=== PATIENT | male | born 1955 | race Caucasian/White ===

== ENCOUNTER 2021-02-18 12:13 | Emergency (ER) | payer BC, SELFPAY ==
[2021-02-18 12:42] VITALS: BP 143/86; PULSE 101; RESP 18; TEMP 36.8; O2SAT 96; BMI 30.8
[2021-02-18 12:48] LABS: UTC Strep Screen (Rapid) Positive (Negative)
[2021-02-18 12:53] VITALS: BP 143/86; PULSE 101; RESP 16; TEMP 36.8
--- NOTE | 2021-02-18 13:11 | HMH.EDUTC ---
[facility] Disposition Clinical Impression: Strep throat Upper respiratory infection Qualifiers: URI type: unspecified URI Qualified Code(s): J06.9 - Acute upper respiratory infection, unspecified Disposition: Home, Self-Care Condition on Discharge: Good Instructions: DI for Strep Throat Additional Instructions: Drink plenty of fluids. Take tylenol or ibuprofen for pain or fever. Take the medications as directed. Follow up with your regular doctor. GO TO THE ER FOR ANY WORSENING SYMPTOMS Prescriptions: Amoxicillin/Potassium Clav [Augmentin 875-125 Tablet] 1 tab PO Q12H 10 Days #20 tab Transmission Status: Received by [facility] # predniSONE [Deltasone 10mg tablet] 10 mg PO BID 3 Days #6 tab Transmission Status: Received by [facility] # Benzonatate [Tessalon Perle 100mg Cap] 100 mg PO TIDP PRN #30 cap PRN Reason: Cough Transmission Status: Received by [facility] # Referrals: Raoul Gutiérrez MD [Primary Care Provider] - Time of Disposition: 13:12 Medical Decision Making - Medical Records Medical records reviewed: No: I reviewed the patient's medical records. - Michael Inquiry Pt receiving controlled substance: No Vital Signs: 02/18/21 12:42 02/18/21 12:53 Temperature 98.2 F 98.2 F Temperature Source Oral Pulse Rate 101 H Pulse Rate [Right] 101 H Respiratory Rate 18 16 Blood Pressure 143/86 H Blood Pressure [Right Arm] 143/86 H Blood Pressure Mean [Right Arm] 105 02 Sat by Pulse Oximetry 96 - Lab Data Lab results reviewed: Yes: I reviewed the patient's lab results. Lab Results 02/18/21 12:45: Strep Scn Rapid Clinic Positive A [facility] HPI - General Stated complaint: sore throat Time Seen by Provider: 02/18/21 13:11 Mode of Arrival: Ambulatory Source of Information: Patient Limitations: No Limitations Description of Symptoms (Recalled from Triage Doc. by RN): pt c/o sore throat and drainage. pts is strep positive. HEENT Symptoms (Recalled from RN notes): Yes (sore throat and nasal drainage.) Resp Symptoms (Recalled from RN notes): No Skin Symptoms (Recalled from RN notes): No MS Symptoms (Recalled from RN notes): No Functional Status (Recalled from RN notes): na - History of Present Illness Provider Complaint: He has had a sore throat for the past 2 days. His was diagnosed with strep throat yesterday. - Related Data Previous Rx's Medication Instructions Recorded Amoxicillin/Potassium Clav 1 tab PO Q12H 10 Days #20 tab 02/18/21 [Augmentin 875-125 Tablet] Benzonatate [Tessalon Perle 100mg 100 mg PO TIDP PRN #30 cap 02/18/21 Cap] predniSONE [Deltasone 10mg tablet] 10 mg PO BID 3 Days #6 tab 02/18/21 Allergies Allergy/AdvReac Type Severity Reaction Status Date / Time No Known Allergies Allergy Verified 02/18/21 12:48 - Worker's Comp Is this a Worker's Comp case?: No [facility] History - Hepatitis A Screen Drug use history?: No High risk sexual behaviors?: No History of sexually transmitted infection?: No Currently employed?: No Childcare worker?: No Do you have indoor plumbing?: Yes Do you have electricity?: Yes Attestation statement:: This patient has been screened for Hepatitis A risk factors. I have reviewed the patient's past medical history: Yes ROS Obtained: Yes All systems reviewed & no additional complaints - Constitutional Constitutional: Reports chills, Denies fever(s), Reports poor appetite, Reports malaise - Eyes Eyes: Denies eye discharge - ENT Ears, Nose, Mouth, and Throat: Reports as per HPI - Cardiovascular Cardiovascular: Denies chest pain - Respiratory Respiratory: Reports chest congestion, Reports cough, Denies dyspnea, Denies stridor, Denies wheezing - Gastrointestinal Gastrointestingal: Reports: nausea. Denies: abdominal pain, diarrhea, vomiting Physical Exam - General General appearance: alert, in no apparent distress - Head Head exam: atraum
== END 2021-02-18 13:23 | disposition home or self-care (01) ==
PROVIDERS: Emergency Provider Nurse Practitioner Family; PCP Family Medicine
DX: J02.0 Streptococcal pharyngitis (principal); J06.9 Acute upper respiratory infection, unspecified
CPT/HCPCS: 87880; 99202; G0463

== ENCOUNTER 2023-02-05 07:24 | Emergency (ER) | payer BC, SELFPAY ==
[2023-02-05] VITALS (8 sets, daily range): BP systolic 144–178; BP diastolic 87–105; PULSE 70–95; RESP 16; TEMP 36.7; O2SAT 95–96; BMI 28.3
--- NOTE | 2023-02-05 08:09 | PC.NURSE ---
TIFFANY BOWEN at
--- NOTE | 2023-02-05 08:57 | HMH.EDGENADL ---
Discharge Plan Disposition Patient Disposition: Home, Self-Care Condition: Good Chief Complaint: Epistaxis Prescriptions Prescriptions: No Action prednisone 10 MG tablet 10 mg PO BID 3 Days Qty: 6 0RF benzonatate 100 MG capsule 100 mg PO TIDP PRN (Reason: Cough) Qty: 30 0RF amoxicillin-pot clavulanate 1 EACH tablet 1 tab PO Q12H 10 Days Qty: 20 0RF Referrals Follow up/Referrals: Rakan Sam MD [Primary Care Provider] - See instructions Clinical Impressions Clinical Impression: Epistaxis Instructions Patient Instructions: DI for Nosebleed Print Language Print Language: Senegalese Discharge ED Provider: Aryan Mccann General Adult HPI General Chief complaint: Epistaxis Stated complaint: Frequent nose bleeds Time Seen by Provider: 02/05/23 09:27 Mode of Arrival: Ambulatory Source of Information: Patient Limitations: No Limitations Description of Symptoms (Recalled from ER Triage Doc. by RN): 67 yo M presents to ED for nosebleeds. pt reports friday and friday morning his nose only trickled blood. last niht and this am pt reports that he has been swallowing blood. pt does not take blood thinners. History of Present Illness HPI narrative: patient presents to the emergency department with epistaxis from his left nostril. The patient states that he has had a few of these over the last several days but describes tonight being the worst. He states that he has been using a nasal spray for allergy type of symptoms. Denies any nasal trauma. Denies being on a blood thinner. Denies any previous history of significant nosebleeds. Related Data Previous Rx's Medication Instructions Recorded amoxicillin 875 mg-potassium 1 tab PO Q12H 10 days #20 tabs 02/18/21 clavulanate 125 mg tablet benzonatate 100 mg capsule 100 mg PO TIDP PRN Cough #30 caps 02/18/21 prednisone 10 mg tablet 10 mg PO BID 3 days #6 tabs 02/18/21 Allergies Allergy/AdvReac Type Severity Reaction Status Date / Time No Known Allergies Allergy Verified 02/18/21 12:48 [facility] Disclaimer: The information contained in this section may have been updated after the patient was seen, as this information can be updated by other users. Social History Smoking Status: Never smoker alcohol intake: never current occupational status: retired Travel in the last 8 weeks: None ROS Obtained: Yes All systems reviewed & no additional complaints except as documented ENT Ears, Nose, Mouth, and Throat: Reports epistaxis Physical Exam General General appearance: alert and in no apparent distress Head Head exam: atraumatic and normocephalic Eye Eye exam: Present normal appearance, PERRL and EOMI ENT ENT exam: Present other ( Small amount of dried blood within the left nostril. Appears that there was a previously bleeding Patient presents to the emergency department with a 2-day history of sore throat, nasal septum.) Respiratory Respiratory exam: Present normal lung sounds bilaterally Cardiovascular Cardiovascular exam: Present regular rate, normal rhythm and normal heart sounds Abdominal Exam Abdominal exam: Present soft and normal bowel sounds Extremities Exam Extremities exam: Present normal inspection and full ROM Neurological Exam Neurological exam: Present alert and oriented X3 Psychiatric Psychiatric exam: Present normal affect and normal mood Medical Decision Making Medical Records Medical records reviewed: Yes I reviewed the patient's medical records. Michael Inquiry Pt receiving controlled substance: No Vital Signs: 02/05/23 07:25 02/05/23 07:31 02/05/23 07:43 Temperature 98.1 F Temperature Source Oral Pulse Rate 85 94 H Pulse Rate [Left] 86 Respiratory Rate 16 Blood Pressure 178/105 H 160/91 H Blood Pressure [Right Arm] 178/105 H Blood Pressure Mean 130 122 Blood Pressure Mean [Right Arm] 129 02 Sat by Pulse Oximetry 96 96 96
== END 2023-02-05 09:35 | disposition home or self-care (01) ==
PROVIDERS: Emergency Provider Emergency Medicine; PCP Family Medicine
DX: R04.0 Epistaxis (principal)
CPT/HCPCS: 99283; 99284

== ENCOUNTER 2024-01-16 14:53 | Outpatient (CLI) | payer OTHER, SELFPAY ==
--- NOTE | 2024-01-16 | CA_ITS ---
FINAL REPORT CLINICAL HISTORY: blurred vision, htn FINDINGS: RIGHT CAROTID: CCA PSV -84 cm/sec ICA PSV -98 cm/sec ICA/CCA PSV ratio -1.27 . Comments: Minimal plaque disease is noted. LEFTCAROTID: CCA PSV - 87. cm/sec ICA PSV -90. cm/sec ICA/CCA PSV ratio - 1.43 . Comments: Minimal plaque disease is noted. Antegrade flow is seen within the vertebral arteries. IMPRESSION: Carotid stenosis classified less than 50% Reviewed, Interpreted and Dictated by Reji Acosta MD Transcribed by Samia Ramsay Authenticated and [facility]
== END 2024-01-16 23:59 | disposition home or self-care (01) ==
PROVIDERS: PCP Family Medicine; Visit Provider Family Medicine
DX: R55 Syncope and collapse (principal); G45.8 Other transient cerebral ischemic attacks and related syndromes
CPT/HCPCS: 93880

== ENCOUNTER 2024-02-24 06:57 | Day surgery (SDC) | payer OTHER, SELFPAY ==
[2024-02-24] MEDS: CYCLOPENTOLATE 2% OPHTH SOLN 2ML BOTTLE OP ×3 (07:56→07:58)
[2024-02-24] MEDS: PHENYLEPHRINE 2.5% OPHTH SOLN 2ML OP ×3 (07:57→07:59)
[2024-02-24] MEDS: TETRACAINE 0.5% OPTH SOL 15ML OP ×3 (07:57→07:59)
[2024-02-24 08:05] VITALS: BP 172/98; PULSE 84; RESP 18; TEMP 36.6; O2SAT 96; BMI 28.3
[2024-02-24 08:13] VITALS: BP 172/89; PULSE 84; RESP 18; TEMP 36.6; O2SAT 96
[2024-02-24 08:55] VITALS: BP 163/95; PULSE 77; RESP 18; TEMP 36.6; O2SAT 98
[2024-02-24] MEDS: MIDAZOLAM 2MG/2ML VIAL 1 MG IV (08:55)
[2024-02-24 09:00] VITALS: BP 160/85; PULSE 83; RESP 18; TEMP 36.6; O2SAT 95
[2024-02-24] MEDS: LIDOCAINE 1% PF 2ML AMPULE 2 ML IJ (09:03)
[2024-02-24] MEDS: TOBRAMYCIN/DEX OPTH SUSP 2.5ML OP (09:03)
[2024-02-24] MEDS: TIMOLOL 0.5% OPTH SOLN 5ML OP (09:03)
[2024-02-24 09:05] VITALS: BP 158/83; PULSE 82; RESP 18; TEMP 36.6; O2SAT 96
[2024-02-24 09:20] VITALS: BP 150/87; PULSE 81; RESP 16; TEMP 36.8; O2SAT 97
--- NOTE | 2024-02-24 09:24 | ECG_ITS ---
APPROVED REPORT Exam: Resting ECG HR:72 bpm ECG Measurements Heart Rate 72 AXES IL 152 P 24 QRSd 178 QRS -9 QT 414 T 124 QTc 439 Conclusion SINUS RHYTHM LEFT BUNDLE BRANCH BLOCK [120+ ms QRS DURATION, 80+ ms Q/S IN V1/V2, 85+ ms R IN I/aVL/V5/V6] ABNORMAL ECG UNCONFIRMED REPORT Electronically signed by : Raoul Gallo MD 02/25/2024 15:03:43
--- NOTE | 2024-02-24 09:25 | SUR.OPER ---
855- patient into room with circulating nurse Jose URBANO. When initially hooking patient up to the cardiac mkonitor for cataract procedure, it was noticeable that his QRS was wide. Dr Andersen notified, stated to continue to watch and we will evaluate at the end of procedure. 914- procedure ended, Ronnie Escalante EMBEDDED SOFTWARE ENGINEER in room to evaluate ECG rhythm on monitor. Verbal orders for EKG. Verbal orders repeated and placed into computer. Respiratory called by Morgan Chao RN. Patient taken back to post-op. VSS stable throughout cataract procedure with noticeable Hypertension. see sedation vital signs for vitals during procedure. Post-op nurse Corwin Berman RN received report from this nurse. Notified of order for EKG orders.
--- NOTE | 2024-02-24 09:44 | SUR.PHASEII ---
0920 pt to post op Cynthia Julian RN to give report to Francesca Berman. EKG appeared abnormal in procedure room. EKG ordered. VS stable. no complaints from patient. EKG obtained with left bundle branch block. Cynthia Mclaughlin CRNA reviewed. Cardiology appointment made for 03/09/24 1030 with Chalo Shine. Patient instructed to go to ER if patient experiences chest pain, fainting, or any other symptoms.
--- NOTE | 2024-02-24 13:00 | P.PCN_ITS ---
[facility] Procedure Note Date: 02/24/24 Time: 13:00 Procedure Note:: Preoperative Diagnosis: Cataract combined NS Cortical Complex [Left] Eye Postop diagnosis: same Operation: Microscopic phacoemulsification with intraocular lens implant [Left] Eye Specimen: None Blood Loss: None The patient was examined in the office with a complaint of poor vision in the [left] eye. The patient reports that this interferes with ADLs such as reading, watching TV and/or driving or the vision is like looking through a foggy haze and is very troubling. The patient was examined and found to have a visually significant cataract with best corrected vision of [20/400] by refraction and/or glare testing. Treatment options, risks and benefits were explained and the patient elected to have cataract surgery in an attempt to improve their vision. The patient had the eye anesthetized with topical tetracaine, the eye ways prepped and draped in the usual fashion for cataract surgery. A paracentesis and a temporal keratotomy were made. 0.2cc of 1% lidocaine PF was placed into the anterior chamber. And aqueous/viscoelastic exchange was done and a 360 degree capsulorexis was performed. Through hydrodissection and delineation with BSS on a cannula was done. The lens nucleus was phecoemulsified with CDE of [9.46]. Residual cortical material was removed using automated I&A The capsular bag was deepened with viscoelastica and a PCIOL was placed in the capsular bag with good centration and stability. Residual viscoelastic was removed using automated I&A. The keratotomy incision was hydrated with BSS on a cannula. The wound were checked and found to be water tight. IOP was checked digitally and adjusted as needed so as not to be too high. 1 drop of timolol 0.5%, ofloxacin, prednisolone acetate and ketorolac was instilled and eye shield taped over the eye. The patient was taken to recovery in good condition and will be seen postoperatively.
[2024-02-24 16:46] LABS: POC Glucose,Bedside 146 (70-110)
== END 2024-02-24 09:40 | disposition home or self-care (01) ==
PROVIDERS: PCP Family Medicine; Visit Provider Ophthalmology
PROC: (CPT 66984; principal; 2024-02-24 09:00)
DX: H25.12 Age-related nuclear cataract, left eye (principal)
CPT/HCPCS: 66984; 82962; 93005; J2250; V2632

== ENCOUNTER 2024-03-19 10:17 | Outpatient (CLI) | payer OTHER, SELFPAY ==
--- NOTE | 2024-03-19 10:19 | CA_ITS ---
APPROVED REPORT EXAM: Comprehensive 2D, Doppler, and color-flow Echocardiogram Medicinal Plant Picker: Maria De Jesus Price, RT(R) Ht: 5 ft 9 in Wt: 189lbs BSA: 2.02 BP: 170/94 mmHg Indications: LBBB, abn EKG, DM, hyperlipidemia, hx skin cancer Echo Enhancing Agent Indication: Endocardial border delineation Agent(s) / Amount(s) Used: Definity 2 cc 2D Dimensions LVEF (Solis's) 31.40 % M: 52 - 72 LV Volume 173.80 mL M: 62 - 150 LV Volume Index 86.0 mL/m2 M: 34 - 74 LA Volume 34.40 mL LA Volume Index 17.03 mL/m2 (M/F) 16-34 EF AP4 28.90 % EF AP2 33.6 % EF BP 31.4 % GL Strain -11.5 % M-Mode Dimensions RVDd 2.58 cm (0.9-2.6) LA Diam 2.91 cm (1.9-4.0) LVDd 5.31 cm (3.5-5.7) LVDs 3.94 cm (3.5-5.7) IVSd 1.45 cm (0.6-1.1) PWd 0.81 cm (0.6-1.1) EF (Teich) 50.30% FS 25.80% EDV (Teich) 135.90 mL ESV (Teich) 67.50 mL LV Diastology E Decel Time 187 (160-240 msec) E/A Ratio 0.6 Mitral Valve MV E Max Josef. 58.0 (40-130 cm/s) MV A Velocity 91.0 (40-130 cm/s) E/A Ratio 0.64 MV PHT 55.0 ms Left Ventricle The left ventricle is mildly dilated. The left ventricular systolic function is severely reduced. There is marked increased LV wall thickness.IVSd 1.5 cm. There is no evidence of LVOT obstruction at rest. There is severe global hypokinesis present. The septum is asynchronous. Transmitral Doppler flow pattern suggests impaired LV relaxation. No left ventricle thrombus noted on this study. LVEF is 25%. Right Ventricle The right ventricle is normal size. The right ventricular systolic function is normal. Atria Left atrium is mildly dilated. The right atrium size is normal. There is no Doppler evidence of interatrial shunt. Aortic Valve The aortic valve is mildly thickened. There is no aortic valvular stenosis. Trace aortic regurgitation. Mitral Valve The mitral valve leaflets are mildly thickened. No evidence of systolic anterior motion of the mitral valve leaflets. No evidence of mitral valve stenosis. Mild to moderate mitral regurgitation. Tricuspid Valve The tricuspid valve leaflets are thin and pliable. Mild tricuspid regurgitation. RVSP is 20-25 mmHg. Pulmonic Valve The pulmonary valve is normal in structure. Mild pulmonic regurgitation. Great Vessels The aortic root is normal in size. The ascending aorta is not well-visualized. IVC is normal in size and collapses >50% with inspiration. Pericardium There is no pericardial effusion. Other Information Study Quality: Fair Conclusion Mild LV dilation with severe reduction in LV systolic function (LVEF 25%). Marked increase in LV wall thickness (IVSd 1.5 cm). Mild LA dilation. Mild to moderate MR. Mild TR, mild PI. In the setting of severely reduced LV systolic function and marked increase in LV wall thickness, further evaluation with ischemic workup, as well as cardiac MRI (HCM protocol), this suggested. Electronically signed by : Zayda Schroeder MD 03/23/2024 23:01:29
--- NOTE | 2024-03-19 11:10 | NM_ITS ---
APPROVED REPORT Exam: Nuclear Stress Test Indication: DM, HYPERLIPIDEMIA, SOB, ABN EKG Patient Location: Outpatient Stress Tech: Tsering Rivera GA Tech:RINA Chnag RT (R)(N)(M) Ht: 5 ft 9 in Wt: 189 lbs HR: 82 bpm BP: 161/90 mmHg BSA: 2.02 m2 Rhythm: NSR, LBBB TID: 1.09 BMI: 27.9 History: DM, HYPERLIPIDEMIA, SOB, ABN EKG Procedure: Patient received 0.4 mg of intravenous Lexiscan, resting heart rate 82 bpm, resting blood pressure 161/90 mmHg, with Lexiscan maximum heart rate achieved was 122 bpm which is % of the maximum predicted heart rate and blood pressure was 175/94 mmHg. With Lexiscan, patient denied any complaint of chest pain. Cardiac Stress and Resting SPECT Images: Cardiac Stress and Resting SPECT images were obtained using technetium 99m Myoview 32.8 mCi stress and 10.62 mCi at rest. Resting and stress imaging in supine and prone positions demonstrate a large sized, severe, fixed perfusion defect in the inferior and inferoseptal LV torres from the base and extending distally towards the apical region. There is also a medium sized, moderate, predominantly fixed perfusion defect in the mid to distal anterior LV wall, with a surrounding region of minimal reversibility. The left ventricle is dilated. Gated imaging demonstrates severe reduction in global LV systolic function. The inferior and inferoseptal LV torres are nearly akinetic. LVEF is calculated at 23%. Conclusion: Large sized, severe, fixed perfusion defect in the inferior and inferoseptal LV torres from the base and extending distally towards the apical region. There is also a medium sized, moderate, predominantly fixed perfusion defect in the mid to distal anterior LV wall, with a surrounding region of minimal reversibility. The left ventricle is dilated. Gated imaging demonstrates severe reduction in global LV systolic function. The inferior and inferoseptal LV torres are nearly akinetic. LVEF is calculated at 23%. Electronically signed by : Zayda Schroeder MD 03/22/2024 12:01:01
[2024-03-19] MEDS: DEFINITY US ECHO CONTRAST 2ML INJ 2 MG IV (11:17)
[2024-03-19] MEDS: SODIUM CHLORIDE 0.9% 10ML SYR (RAD ONLY) 10 ML IV ×2 (11:20→12:40)
--- NOTE | 2024-03-19 13:14 | CA_ITS ---
APPROVED REPORT Exam: Pharmacologic Technologist: Tsering Gotti, Ht: 5 ft 9 in Wt: 189 lbs BSA: 2.02 m2 HR: 75 bpm BP: 161/90 mmHg Indications: LBBB, CAD Medical History Medications: Aspirin,,,,, Metformin,,,,, RoSUVASTATIN,,,,, BenzONATe,,,,, Stress Test Details Test: LEXISCAN Reason for pharmacologic stress test: physical limitation. HR Resting HR: 82 bpm Max Heart Rate (APMHR): 152 bpm Max HR Achieved: 122 bpm Target HR (85% APMHR): 129 bpm % of APMHR: 80 Recovery HR: 82 bpm BP Resting BP: 161.0/90.0 mmHg Max BP: 175.0/94.0 mmHg Recovery BP: 161.0/97.0 mmHg ECG Resting ECG: NSR, LBBB Stress ECG: No significant ST changes Arrhythmia: None Clinical Exercise duration: 04:00 min Highest Stage Achieved: Stress ECG Conclusion Symptoms: mild SOA & light-headedness. No CP. Arrhythmias/Ectopy: None ST-T Changes: No significant ST changes. Conclusion: LBBB at baseline. Unremarkable Lexiscan stress. No significant ST changes Test Summary REST . . . . . . . Resting REST 02:43 . . 82 . 161/ 90 . . Stage 1 01:00 . . 117 . . . . Stage 2 01:00 . . 102 . 175/ 94 . . Stage 3 01:00 . . 90 . 169/ 92 . . Stage 4 01:00 . . 92 . 157/ 87 . Stop exercise at 04:00 RECOVERY 01:00 . . 89 . 164/ 94 . . RECOVERY 02:00 . . 90 . 164/ 94 . . RECOVERY 03:00 . . 83 . 156/ 96 . . RECOVERY 03:22 . . 82 . 161/ 97 . . Electronically signed by : Zayda Schroeder MD 03/22/2024 11:57:38
[2024-03-19] MEDS: REGADENOSON 0.4MG/5ML SYRINGE 0.4 MG IV (13:41)
[2024-03-19] MEDS: ISOTOPE MYOVIEW (PER STUDY) 1 DOSE IV (13:41)
== END 2024-03-19 23:59 | disposition home or self-care (01) ==
LOC: RT 10:19
PROVIDERS: PCP Family Medicine; Visit Provider Physician Assistant
DX: I44.7 Left bundle-branch block, unspecified (principal); R94.31 Abnormal electrocardiogram [ECG] [EKG]
CPT/HCPCS: 78452; 93017; 93018; 93306; A9502; J2785; Q9957

== ENCOUNTER 2024-04-07 07:59 | Day surgery (SDC) | payer OTHER, SELFPAY ==
[2024-04-07] VITALS (10 sets, daily range): BP systolic 99–148; BP diastolic 57–90; PULSE 71–89; RESP 16–19; O2SAT 95–98; BMI 28.0
--- NOTE | 2024-04-07 07:33 | IR_ITS ---
APPROVED REPORT Patient Location: Outpatient PROCEDURES Left heart catheterization Left ventriculogram Selective coronary angiogram INDICATION Systolic congestive heart failure ejection fraction 25%, Abnormal EKG, Abnormal Myoview Informed consent was obtained prior to the procedure. COMPLICATIONS None Estimated Blood Loss: Less than 10 mls TECHNIQUE One percent lidocaine used to anesthetize the right anterior aspect of the wrist. The right radial artery was accessed via the Seldinger technique. A 6 English sheath was placed in the right radial artery. 2.5 mg of Verapamil, 800 mcg of nitroglycerin, 1mg Lidocaine and 5000 U Heparin were given through the arterial sheath. The papa catheter was also used to perform left heart catheterization, left ventriculogram and selective coronary angiogram. At the end of the procedure the sheath was removed good hemostasis was achieved using Traclet band, patient was transferred to the postop holding area in stable condition. ANGIOGRAPHIC RESULTS The left main artery Normal The left anterior descending artery Proximal 10% luminal irregularities with mid vessel 20% luminal regularities The circumflex artery Normal The right coronary artery Normal The PAEZ ventriculogram reveals Dilated ventricle reduced ejection fraction 25% The left ventricular end-diastolic pressure 10 to 15 mmHg IMPRESSION Mild nonocclusive coronary artery disease Dilated ventricle with severely reduced ejection fraction Normal LVEDP PLAN 1. Recommend cardiac MRI 2. GDMT for systolic heart failure 3. Patient should be a candidate for CRNA-D after being on medical management for 90 days 4. Risk factor modification Electronically signed by : Luther Elizabeth MD 04/07/2024 11:42:00
[2024-04-07 08:36] LABS: Basophils # 0.1 K/mm3 (0-0.2); Basophils % 1.1 % (0.1-2.0); Eosinophils # 0.2 K/mm3 (0.0-0.4); Eosinophils % 2.7 % (0.1-12.0); Hematocrit 41.1 % (42.0-52.0); Lymphocytes # 2.7 K/mm3 (0.7-4.5); Lymphocytes % 49.3 % (10-50); Mean Corpuscular Volume 94.9 fl (80-94); Monocytes # 0.3 K/mm3 (0.1-1.0); Monocytes % 5.2 % (1.7-9.3); Neutrophils # 2.3 K/mm3 (1.8-7.8); Neutrophils % 41.7 % (37.0-80.0); Platelet Count 231 K/mm3 (142-424); Red Blood Count 4.33 M/mm3 (4.60-6.20); Red Cell Distribution Width 14.1 % (11.5-17.5); White Blood Count 5.5 K/mm3 (4.8-10.8)
[2024-04-07 08:41] LABS: Blood Urea Nitrogen 14 mg/dl (9-20); Calcium 9.8 mg/dl (8.4-10.2); Carbon Dioxide 24 mmol/L (22.0-30.0); Chloride 107 mmol/L (98-107); Creatinine Clearance Estimated 86 mL/min (50-200); Estimated Glomerular Filt Rate 84 ml/min (>60); GFR (African American) 102 ML/MIN (>60); Glucose 155 mg/dl (74-100); Sodium 141 mmol/L (136-145)
[2024-04-07] MEDS: HEPARIN 1,000 UNITS/ML 10ML VIAL (CATH LAB) 10000 UNIT IV (10:44)
[2024-04-07] MEDS: diphenhydrAMINE 50MG/ML VIAL 50 MG IV (10:45)
[2024-04-07] MEDS: LIDOCAINE 1% 10ML MDV 20 ML IJ (10:45)
[2024-04-07] MEDS: HEPARIN 1,000 UNITS/500ML NS (CATH LAB) 3000 UNIT IV (10:45)
[2024-04-07] MEDS: VERAPAMIL 2.5MG/ML 2ML VIAL 2.5 MG IV (10:45)
[2024-04-07] MEDS: 0.9 % SODIUM CHLORIDE 500 ML 25 ML IV (10:45)
[2024-04-07] MEDS: NITROGLYCERIN 800MCG/8ML SYR (CATH LAB) 800 MCG IA (10:45)
[2024-04-07] MEDS: FENTANYL 100MCG/2ML VIAL 50 MCG IV (11:39)
[2024-04-07] MEDS: MIDAZOLAM HCL 1MG/1ML 5ML VIAL 1 MG IV (11:39)
[2024-04-07] MEDS: IOPAMIDOL-370 (76%);100ML BOTTLE 60 ML IV (12:01)
== END 2024-04-07 13:48 | disposition home or self-care (01) ==
PROVIDERS: PCP Family Medicine; Visit Provider Internal Medicine
DX: R93.1 Abnormal findings on diagnostic imaging of heart and coronary circulation (principal); I50.20 Unspecified systolic (congestive) heart failure; I42.8 Other cardiomyopathies; I44.7 Left bundle-branch block, unspecified; R94.31 Abnormal electrocardiogram [ECG] [EKG]; I25.118 Atherosclerotic heart disease of native coronary artery with other forms of angina pectoris; E11.9 Type 2 diabetes mellitus without complications; Z79.84 Long term (current) use of oral hypoglycemic drugs; Z79.899 Other long term (current) drug therapy
CPT/HCPCS: 80048; 85025; 93458; 99152; C1725; C1769; J1200; J1644; J2250; J3010; Q9967

== ENCOUNTER 2024-04-23 09:38 | Outpatient (CLI) | payer OTHER, SELFPAY ==
--- NOTE | 2024-04-23 09:39 | MR_ITS ---
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 Software platform sequences were performed using the Siemens Acronis MR B19 platform. A set of three-plane, low-resolution, large [id number] localizers were initially acquired. Then axial, coronal, sagittal TrueFISP, as well as axial HASTE images, were obtained. These were followed by gated TrueFISP breathold cinematic sequences obtained in the short axis with 8 mm slices and 2 mm gaps, 2-chamber (vertical long axis), 3-chamber, 4-chamber (horizontal long axis). A bolus of contrast was injected intravenously with first-pass sequences obtained in the short axis and four-chamber planes. After approximately 10 minutes, a TI bond underwriter sequence was performed to determine the optimal TI time. Using the optimized TI time, delayed contrast enhancement segmented inversion???recovery TurboFLASH sequences were obtained in the short axis, 2-chamber, 3-chamber, and 4-chamber projections. 2D-velocity phase mapping was performed. Functional parameters were calculated by offline analysis on an independent workstation ([employer], [email or web address]). Contrast: ProHance??? (Gadoteridol) FINDINGS MORPHOLOGY AND FUNCTION Left ventricle: The left ventricle is mildly dilated. The indexed left ventricular end-diastolic volume (LVEDVi) is 100 ml/m2 (reference range 57-105 ml/m2 in males, 56-96 ml/m2 in females). There is increased LV wall thickness, up to 13 mm in the basal septal LV wall. There is severe reduction in left ventricular systolic function. The septum is asynchronous. LVEF is calculated at 24.3% (reference range 57-77%). Right ventricle: The right ventricle is normal in size. The indexed right ventricular end-diastolic volume (RVEDVi) is 58 ml/m2 (reference range 61-121 ml/m2 in males, 48-112 ml/m2 in females). There is severe reduction in right ventricular systolic function. RVEF is calculated at 26.3 % (reference range 52-72% in males, 51-71% in females). Atria: The left atrium is normal in size. The maximum indexed left atrial volume is 22 ml/m2 (reference range 26-52 ml/m2 in males, 27-53 ml/m2 in females). The right atrium is normal in size. The maximum indexed right atrial volume is 18 ml/m2 (reference range 18-90 ml/m2). Aorta: The diameter of the aortic annulus is normal, measuring 29 mm (coronal view reference range 21-30 mm in males, 19-27 mm in females). The diameter of the aortic sinus is normal, measuring 36 mm (coronal view reference range 25-42 mm in males, 24-36 mm in females). The diameter of the sinotubular junction is normal, measuring 31 mm (coronal view reference range 18-32 mm in males, 18-28 mm in females). The diameters of the ascending and descending thoracic aorta are normal. Main pulmonary artery: The main pulmonary artery diameter is normal. Pericardium: The pericardial thickness is normal. The pericardial thickness measures 1.9 mm (normal < 4.0 mm). There is no pericardial effusion. VALVES The valvular morphologies in the visualized sequences appear normal. There is no significant valvular stenosis or regurgitation of the mitral, aortic, tricuspid, or pulmonic valve noted visually. Systolic anterior motion of the mitral valve is not visualized. Ratio of pulmonary to systemic flow, Qp:Qs ratio = 1.18 (normal < or = 1.2, hemodynamically significant shunt > 1.5), demonstrating no evidence of hemodynamically significant shunt. TISSUE CHARACTERIZATION Resting Perfusion: Normal myocardial blood flow at rest. No evidence of resting hypoperfusion. Myocardial Fibrosis and/or edema: Abnormal gadolinium kinetics are present. There is a thick stripe of mid myocardial late gadolinium enhancement noted in the basal septal LV wall, consistent with presence of myocardial scarring. OTHER No other significant findings are noted. However, this exam is focused on the cardiac structure and function. IMPRESSION Mildly dilated LV with severe reduction in LV systolic function. LVEDVi= 100 ml/m2 and LVEF= 24.3%. There is increased LV wall thickness, up to 13 mm in the basal septal LV wall. Normal RV size with severe reduction in RV systolic function. RVEDVi= 58 ml/m2 and RVEF= 26.3%. No atrial enlargement. Mid myocardial late gadolinium enhancement noted in the basal septal LV wall, consistent with presence of myocardial scarring. Perfusion analysis demonstrates normal blood flow at rest with no evidence of resting hypoperfusion. Ratio of pulmonary to systemic flow, Qp:Qs ratio = 1.18 (normal < or = 1.2, hemodynamically significant shunt > 1.5), demonstrating no evidence of hemodynamically significant shunt. 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 There is increased LV wall thickness, but not meeting HCM criteria. No evidence of infiltrative cardiomyopathy. COMPARISON None CRITICAL RESULT None COMMUNICATION Per this written report The findings of this cardiac MR were reviewed, reported, and signed by Xavi Schroeder MD ([facility]). Conclusion Electronically signed by : Zayda Schroeder MD 05/31/2024 13:05:41
[2024-04-23] MEDS: 0.9 % SODIUM CHLORIDE 50 ML VIAL 25 ML IV (10:32)
[2024-04-23] MEDS: GADOTERIDOL INJ 20ML SYRINGE 19 ML IV (10:32)
[2024-04-23] MEDS: SODIUM CHLORIDE 0.9% 10ML SYR (RAD ONLY) 10 ML IV (10:32)
== END 2024-04-23 23:59 | disposition home or self-care (01) ==
LOC: RAD 09:39
PROVIDERS: PCP Family Medicine; Visit Provider Nurse Practitioner
DX: I42.8 Other cardiomyopathies (principal); R06.09 Other forms of dyspnea; I20.89 Other forms of angina pectoris; R94.31 Abnormal electrocardiogram [ECG] [EKG]; R93.1 Abnormal findings on diagnostic imaging of heart and coronary circulation; I44.7 Left bundle-branch block, unspecified; R73.03 Prediabetes
CPT/HCPCS: 75561; A9576

== ENCOUNTER 2024-07-05 08:31 | Outpatient (CLI) | payer OTHER, SELFPAY ==
--- NOTE | 2024-07-05 08:39 | CA_ITS ---
APPROVED REPORT EXAM: Limited 2D Echocardiogram with contrast [facility] Director: Joyce MathurROX Ht: 5 ft 9 in Wt: 183lbs BSA: 1.99 BP: 115/78 mmHg Indications: EF CHECK,CM,EF OF 25% 03/19/24,CAD,CHF,DM,WILLIAM,HLD Echo Enhancing Agent Indication: Endocardial border delineation Agent(s) / Amount(s) Used: Definity 2 cc M-Mode Dimensions RVDd 2.92 cm (0.9-2.6) LVDd 5.21 cm (3.5-5.7) LVDs 4.45 cm (3.5-5.7) IVSd 1.36 cm (0.6-1.1) PWd 0.76 cm (0.6-1.1) EF (Teich) 30.70% FS 14.60% EDV (Teich) 130.10 mL ESV (Teich) 90.10 mL Other Information Study Quality: Fair Conclusion This is a limited TTE to evaluate for LVEF. Limited windows were obtained. Ultrasound enhancing agent was administered. The left ventricle is normal in size. There is increased LV wall thickness. There is severe global hypokinesis present. There is akinesis of the septal and anteroseptal LV torres. LVEF is 25%. Administration of ultrasound enhancing agent demonstrates no evidence of LV thrombus. Compared to prior study from 03/2024, the LVEF appears unchanged. Electronically signed by : Zayda Schroeder MD 07/05/2024 10:55:49
[2024-07-05] MEDS: DEFINITY US ECHO CONTRAST 2ML INJ 2 MG IV (09:22)
== END 2024-07-05 23:59 | disposition home or self-care (01) ==
LOC: RT 08:32
PROVIDERS: PCP Family Medicine; Visit Provider Physician Assistant
DX: I42.8 Other cardiomyopathies (principal); I50.20 Unspecified systolic (congestive) heart failure; R94.31 Abnormal electrocardiogram [ECG] [EKG]
CPT/HCPCS: 93308; Q9957

== ENCOUNTER 2024-08-10 08:59 | Day surgery (SDC) | payer OTHER, SELFPAY ==
[2024-08-10] VITALS (9 sets, daily range): BP systolic 91–134; BP diastolic 52–89; PULSE 74–102; RESP 18; O2SAT 92–100; BMI 27.3
--- NOTE | 2024-08-10 07:12 | IR_ITS ---
APPROVED REPORT Patient Location: Outpatient PROCEDURES 1. Pocket formation for biventricular pacemaker generator with cardiac resynchronization/defibrillator therapy. 2. Placement of atrial sensing and pacing lead into the right atrial appendage. 3. Placement of a right ventricular sensing, pacing and shocking lead in the right ventricular apex. 4. Placement of left ventricular sensing pacing lead via the coronary sinus. 5. Permanent cardiac resynchronization therapy with ICD implantation/biventricular pacemaker. INDICATION Systolic Congestive Heart Failure, ejection 25%, Wide QRS >150ms, [place] Heart Assoication Class 3 Congestive Heart Failure, Left Bundle Branch Block, Madit II Criteria Informed consent was obtained prior to the procedure. COMPLICATIONS NONE Estimated Blood Loss: LESS THAN 10 ML TECHNIQUE 1% Lidocaine with epinephrine used to anesthetized the left anterior aspect of the chest. Scalpel was used to make the initial cutaneous incision while electrocautery was used to dissect down tinto the fascia. The fascia was lifted off the pectoralis muscle and digitally manipulated creating a pocket for the defibrillator. The patient was then placed in Trendelenburg position and the subclavian vein was accessed 3 times via the Selinger technique. A 8 English sheath was placed under fluoroscopic guidance into the subclavian vein. The dilator was removed from the sheath. Using fluoroscopic guidance, the ventricular lead was placed into the right ventricular apex, screwed and secured into place. Electronic interrogation proved acceptable thresholds and voltage within the lead. Using 3-0 silk, the ventricular lead was then secured into place and sheath peeled away. Following this, a 9.5 English sheath and dilator was then placed over one of the wires while keeping the other wire in place within the subclavian vein. The dilator was removed from the sheath. Using fluoroscopic guidance, contrast was used to visualize the coronary sinus, the left ventricular lead was placed into the coronary sinus. Electronic interrogation proved acceptable thresholds and voltage within the lead. Using 3-0 silk, the left ventricular lead was then secured into place and sheath peeled away.An additional 6 English fresh sheath and dilator was placed over the existing wire. Using fluoroscopic guidance, the atrial lead was then placed into the right atrial appendage and screwed and secured in place. Electrical interrogation demonstrated acceptable thresholds and voltage number. The atrial lead was then secured into place using 3-0 silk and sheath peeled away. 1 gram of Ancef was used to flush the pocket. All 3 leads were connected to generator and tested via computer. The defibrillator then secured to the fascia. Monocryl was used to close the subcutaneous layers while casey were used to close the cutaneous layer. A pressure dressing was placed and the patient was transferred to the postop holding area in stable condition for postoperative care. INTERROGATION Generator Model number: [employer] HF [id number] Generator Serial number: [id number] Atrial lead model number: Tendril STS [id number] Atrial lead serial number: [id number] P-wave: 4 mV Impedance: 460 Ohms Threshold: 0.5V @ 0.4ms Right Ventricular lead model number: [employer]isure [id number] Right Ventricular lead serial number: [id number] R-wave: 12 mV Impedance: 560 Ohms Threshold: 1.0V @ 0.4ms Shock Impedance: 47 Ohms Left Ventricular lead model number: Quartet [id number] Left Ventricular lead serial number: [id number] R-wave: Impedance: 900 Ohms Threshold: 0.5V @ 0.4ms Pacing Parameters: Mode: DDDR Base/Max Track:60 ppm / 130 ppm No diaphragmatic stimulation at 10 volts. IMPRESSION 1. Successful Pocket formation for biventricular pacemaker generator with cardiac resynchronization/defibrillator therapy. 2. Successful placement of right atrial sensing and pacing lead into the right atrial appendage. 3. Successful placement of a right ventricular sensing, pacing and shocking lead in the right ventricular apex. 4. Successful placement of left ventricular sensing pacing lead via the coronary sinus. 5. Successful permanent cardiac resynchronization plus AICD generator device. PLAN 1. Postop wound care. Electronically signed by : Luther Elizabeth MD 08/11/2024 10:49:34
--- NOTE | 2024-08-10 10:12 | ECG_ITS ---
APPROVED REPORT Exam: Resting ECG HR:102 bpm ECG Measurements Heart Rate 102 AXES NE 148 P 17 QRSd 188 QRS 1 QT 409 T 146 QTc 468 Conclusion SINUS TACHYCARDIA LEFT BUNDLE BRANCH BLOCK [120+ ms QRS DURATION, 80+ ms Q/S IN V1/V2, 85+ ms R IN I/aVL/V5/V6] ABNORMAL ECG UNCONFIRMED REPORT Electronically signed by : Raoul Gallo MD 08/10/2024 20:56:28
[2024-08-10 10:21] LABS: Basophils # 0.1 K/mm3 (0-0.2); Basophils % 1.2 % (0.1-2.0); Eosinophils # 0.1 K/mm3 (0.0-0.4); Eosinophils % 1.9 % (0.1-12.0); Hematocrit 45.7 % (42.0-52.0); Lymphocytes # 2.3 K/mm3 (0.7-4.5); Lymphocytes % 38.6 % (10-50); Mean Corpuscular HGB Conc 34.9 g/dL (31.8-35.4); Mean Corpuscular Hemoglobin 31.5 pg (27.0-31.2); Mean Corpuscular Volume 90.1 fl (80-94); Mean Platelet Volume 7.4 fl (7.4-10.4); Monocytes # 0.3 K/mm3 (0.1-1.0); Monocytes % 5.4 % (1.7-9.3); Neutrophils # 3.1 K/mm3 (1.8-7.8); Neutrophils % 52.9 % (37.0-80.0); Platelet Count 246 K/mm3 (142-424); Red Blood Count 5.07 M/mm3 (4.60-6.20); Red Cell Distribution Width 13.1 % (11.5-17.5); White Blood Count 5.9 K/mm3 (4.8-10.8)
--- NOTE | 2024-08-10 10:25 | P.PNANES_ITS ---
[facility] Disclaimer: The information contained in this section may have been updated after the patient was seen, as this information can be updated by other users. Medical History Hypertension PND (paroxysmal nocturnal dyspnea) Coronary artery disease HFrEF (heart failure with reduced ejection fraction) Skin cancer Kidney stones Prostate atrophy Hyperlipidemia Diabetes mellitus, type 2 Surgical History H/O cardiac catheterization Family History Mother Family history of cancer Brother Family history of cancer Other Family history of diabetes mellitus type II Social History (Updated 08/10/24 @ 10:00 by Niru Haywood RN) Smoking Status: Never smoker alcohol intake: never substance use type: denies use current occupational status: employed and retired caffeine: Yes [facility] Anesthesia Checklist Patient Identification Patient Identification: Arm Band Structural Data Admitted From: Home Planned Operative Procedure/s: Biventricular Pacemaker Consent for Planned Operative Procedure(s) Verified: Yes Verified Documents: Surgical Consent and History and Physical NPO Status Verified Time NPO: 00:00 Additional verifications Anesthesia Reactions: No Airway Assessment Mallampati Score:: Class II C-Spine Mobility Assessed: Yes TMJ Mobility Assessed: Yes Dentition: Good Dentition Neurological Assessment Level of Consciousness: Awake, Alert and Appropriate Anesthesia Plan Anesthesia Risk discussed: Yes Anesthesia Plan: Verified ASA Class: IV Anesthesia Type: MAC
[2024-08-10 10:34] LABS: Anion Gap 12.9 mEq/L (5-15); Blood Urea Nitrogen 14 mg/dl (9-20); Calcium 9.6 mg/dl (8.4-10.2); Carbon Dioxide 26 mmol/L (22.0-30.0); Chloride 103 mmol/L (98-107); Creatinine Clearance Estimated 84 mL/min (50-200); Estimated Glomerular Filt Rate 74 ml/min (>60); GFR (African American) 90 ML/MIN (>60); Glucose 201 mg/dl (74-100); Potassium 3.9 mmoL/L (3.5-5.1); Sodium 138 mmol/L (136-145)
[2024-08-10] MEDS: CEFAZOLIN SODIUM 1 GM in 0.9 % SODIUM CHLORIDE 50 ML IV (11:27)
[2024-08-10] MEDS: 0.9 % SODIUM CHLORIDE 1000ML 1,000 ML 25 ML IV (11:27)
[2024-08-10] MEDS: LIDOCAINE 1% W/EPI 1:100,000 20ML VIAL 20 ML SQ (11:28)
[2024-08-10] MEDS: CEFAZOLIN 1GM VIAL 1 GM TP (11:28)
[2024-08-10] MEDS: diphenhydrAMINE 50MG/ML VIAL 50 MG IV (11:28)
--- NOTE | 2024-08-10 13:35 | XR_ITS ---
FINAL REPORT CLINICAL HISTORY: post cath COMPARISON: None FINDINGS: A portable view of the chest was obtained. A left AICD is present. Cardiac and mediastinal silhouettes are within normal limits. Bibasilar atelectasis is present. There are low lung volumes present. There is no pleural effusion or pneumothorax. IMPRESSION: Bibasilar atelectasis, with low lung volumes. Pleural effusion or pneumothorax is seen. Reviewed, Interpreted and Dictated by Opal Reeves MD Transcribed by Evonne Vargas Authenticated and [facility]
[2024-08-10] MEDS: IOPAMIDOL-370 (76%);100ML BOTTLE IV (14:50)
== END 2024-08-10 15:39 | disposition home or self-care (01) ==
PROVIDERS: PCP Family Medicine; Visit Provider Internal Medicine
PROC: 0JH609Z Insertion of Cardiac Resynchronization Defibrillator Pulse Generator into Chest Subcutaneous Tissue and Fascia, Open Approach (ICD-10-PCS; CPT 33249; principal; 2024-08-10 07:15)
DX: I11.0 Hypertensive heart disease with heart failure (principal); I50.20 Unspecified systolic (congestive) heart failure; Z79.899 Other long term (current) drug therapy; E11.9 Type 2 diabetes mellitus without complications; I44.7 Left bundle-branch block, unspecified; I25.10 Atherosclerotic heart disease of native coronary artery without angina pectoris; I42.8 Other cardiomyopathies
CPT/HCPCS: 33225; 33249; 71045; 80048; 85025; 93005; C1769; C1882; C1895; C1898; C1900; J1200; J2704; J7030; Q9967

== ENCOUNTER 2024-10-30 16:49 | Emergency (ER) | payer OTHER, SELFPAY ==
[2024-10-30] VITALS (13 sets, daily range): BP systolic 98–117; BP diastolic 62–73; PULSE 67–94; RESP 12–18; TEMP 36.6–36.9; O2SAT 92–98; BMI 25.0
--- NOTE | 2024-10-30 16:50 | ECG_ITS ---
APPROVED REPORT Exam: Resting ECG HR:92 bpm ECG Measurements Heart Rate 92 AXES [place] 143 P 54 QRSd 158 QRS 65 QT 365 T 81 QTc 415 Conclusion ELECTRONIC VENTRICULAR PACEMAKER ABNORMAL RHYTHM ECG UNCONFIRMED REPORT Electronically signed by : Chichi Galeas, 10/31/2024 00:11:59
--- NOTE | 2024-10-30 17:12 | XR_ITS ---
PROCEDURE INFORMATION: Exam: XR Chest Exam date and time: 10/30/2024 5:19 PM Age: 69 years old Clinical indication: Other: Cp, pacemaker placed in July TECHNIQUE: Imaging protocol: Radiologic exam of the chest. Views: 1 view. COMPARISON: CR XR CHEST PORTABLE 08/10/2024 1:41 PM FINDINGS: Tubes, catheters and devices: Left chest wall biventricular cardiac pacing device. Lungs: Mildly low lung volumes. No consolidation. Pleural spaces: No pleural effusion. No pneumothorax. Heart/Mediastinum: No cardiomegaly. Bones/joints: No acute findings. IMPRESSION: No acute findings.
[2024-10-30 17:20] LABS: Basophils % 0.4 % (0.1-2.0); Eosinophils # 0.2 K/mm3 (0.0-0.4); Eosinophils % 2.7 % (0.1-12.0); Hematocrit 43.8 % (42.0-52.0); Hemoglobin 14.6 g/dL (14.1-18.0); Lymphocytes # 2.4 K/mm3 (0.7-4.5); Lymphocytes % 33.7 % (10-50); Mean Corpuscular HGB Conc 33.3 g/dL (31.8-35.4); Mean Corpuscular Volume 90.1 fl (80-94); Mean Platelet Volume 9.3 fl (7.4-10.4); Monocytes # 0.7 K/mm3 (0.1-1.0); Monocytes % 10.5 % (1.7-9.3); Neutrophils # 3.7 K/mm3 (1.8-7.8); Neutrophils % 52.3 % (37.0-80.0); Platelet Count 234 K/mm3 (142-424); Red Blood Count 4.86 M/mm3 (4.60-6.20); Red Cell Distribution Width 12.9 % (11.5-17.5); White Blood Count 7.1 K/mm3 (4.8-10.8)
[2024-10-30 17:37] LABS: Alanine Aminotransferase 32 U/L (12-78); Albumin Level 4.5 g/dl (3.5-5.0); Albumin/Globulin Ratio 1.5 (1.1-1.8); Alkaline Phosphatase 55 U/L (38-126); Anion Gap 15.9 mEq/L (5-15); Aspartate Amino Transferase 27 U/L (17-59); Blood Urea Nitrogen 14 mg/dl (9-20); Calcium 9.1 mg/dl (8.4-10.2); Carbon Dioxide 28 mmol/L (22.0-30.0); Chloride 97 mmol/L (98-107); Creatinine Clearance Estimated 79 mL/min (50-200); Estimated Glomerular Filt Rate 84 ml/min (>60); GFR (African American) 102 ML/MIN (>60); Glucose 170 mg/dl (74-100); Potassium 3.9 mmoL/L (3.5-5.1); Sodium 137 mmol/L (136-145); Total Protein,Serum 7.5 g/dl (6.3-8.2)
[2024-10-30 17:39] LABS: D-Dimer 0.37 ug/mL (0.0-0.5)
[2024-10-30] MEDS: IBUPROFEN 800 MG TABLET PO (17:42)
[2024-10-30 17:47] LABS: NT Pro Brain Natriuretic Pep. 262 pg/mL (0-125)
[2024-10-30 17:48] LABS: Troponin I < 0.01 ng/ml (0.00-0.034)
--- NOTE | 2024-10-30 17:51 | ED_ITS ---
Discharge Plan Disposition Patient Disposition: Home, Self-Care Condition: Good Prescriptions Prescriptions: No Action aspirin 81 mg tablet 81 mg PO DAILY Entresto 24-26 mg tablet 1 tab PO BID Qty: 180 3RF spironolactone [Aldactone] 25 mg tablet 25 mg PO BID Qty: 180 3RF rosuvastatin 10 mg tablet 10 mg PO DAILY Qty: 90 3RF furosemide [Lasix] 40 mg tablet 40 mg PO DAILY Qty: 90 3RF Jardiance 10 mg tablet 10 mg PO DAILY Qty: 90 5RF doxazosin 4 mg tablet 4 mg PO DAILY Qty: 90 3RF carvedilol [Coreg] 3.125 mg tablet 3.125 mg PO BID Qty: 180 5RF Rx Instructions: must administer with a meal/food quetiapine [Seroquel] 25 mg tablet 25 mg PO HS Qty: 30 2RF oxycodone-acetaminophen [Percocet] 5-325 mg tablet 1 tab PO Q6H PRN (Reason: pain) Qty: 30 0RF Rx Instructions: 1-2 tabs q6h PRN moderate to severe pain Referrals Follow up/Referrals: Rakan Sam MD [Primary Care Provider] - See instructions Activity Restrictions/Add. Instructions Additional Instructions/Restrictions: You were evaluated for chest pain with no emergent cardiac causes found. 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 Continue taking Tylenol and ibuprofen for symptom control. Please return to ED if your symptoms worsen, change in location, change in severity, new symptoms develop or if you become concerned for your health. Clinical Impressions Clinical Impression: Left bundle branch block (LBBB) Chest pain Qualifiers: Chest pain type: chest pain on breathing Qualified Code(s): R07.1 - Chest pain on breathing Instructions Patient Instructions: DI for Atypical Chest Pain Print Language Print Language: Welsh Discharge ED Provider: Chichi Galeas General Chief Complaint: Chest Pain Stated Complaint: cp Time Seen by Provider: 10/30/24 16:58 Mode of Arrival: Ambulatory Source of Information: Patient Limitations: No Limitations Description of Symptoms (Recalled from ER Triage Doc. by RN): chest soreness, cough,pacemaker placed in nov History of Present Illness HPI narrative: Nazario Schmid is a 69 y/o male presenting with chest pain. Patient states he began having central chest pain 2 days ago. Patient states he had been lifting his grandchild as well as cases of water prior to this event. Patient concerned because he has a pacemaker. Patient has never had a heart attack and has no cardiac stents. Patient takes aspirin daily as well as Entresto. Patient denies radiation of pain to back, arms, neck or associated nausea or diaphoresis. Patient denies lightheadedness, syncope, bowel or bladder changes. Patient denies recent upper respiratory infections. Related Data Home Medications ?Medication ?Instructions ?Recorded ?Confirmed aspirin 81 mg tablet 81 mg PO DAILY 03/09/24 08/24/24 Previous Rx's ?Medication ?Instructions ?Recorded carvedilol 3.125 mg tablet (Coreg) 3.125 mg PO BID #180 tabs 07/12/24 doxazosin 4 mg tablet 4 mg PO DAILY #90 tabs 07/12/24 empagliflozin 10 mg tablet 10 mg PO DAILY #90 tabs 07/12/24 (Jardiance) furosemide 40 mg tablet (Lasix) 40 mg PO DAILY #90 tabs 07/12/24 rosuvastatin 10 mg tablet 10 mg PO DAILY #90 tabs 07/12/24 sacubitril 24 mg-valsartan 26 mg 1 tab PO BID #180 tabs 07/12/24 tablet (Entresto) spironolactone 25 mg tablet 25 mg PO BID #180 tabs 07/12/24 (Aldactone) oxycodone-acetaminophen 5 mg-325 1 tab PO Q6H PRN pain #30 tabs 08/10/24 mg tablet (Percocet) quetiapine 25 mg tablet (Seroquel) 25 mg PO HS #30 tabs 08/24/24 Allergies Allergy/AdvReac Type Severity Reaction Status Date / Time No Known Allergies Allergy Verified 08/24/24 09:23 [facility] Disclaimer: The information contained in this section may have been updated after the patient was seen, as this information can be updated by other users. Medical History (Updated 10/30/24 @ 20:58 by Chichi Galeas MD) Cardiac pacemaker in situ Hypertension PND (paroxysmal nocturnal dyspnea) Coronary artery disease HFrEF (heart failure with reduced ejection fraction) Skin cancer Kidney stones Prostate atrophy Hyperlipidemia Diabetes mellitus, type 2 Surgical History H/O cardiac catheterization Family History Mother Family history of cancer Brother Family history of cancer Other Family history of diabetes mellitus type II Social History Smoking Status: Never smoker alcohol intake: never substance use type: denies use current occupational status: employed and retired Travel in the last 8 weeks: None caffeine: Yes Have you lived/traveled outside [place] in past 30 days?: No Contact w/someone who lives/traveled outside [place] past 30 days?: No Exposure to someone with infectious disease in past 14 days?: No Do you have a fever (greater than 100.4 F or 38 C)?: No Have you tested positive for COVID-19: No Exposed to someone with COVID-19 in past 14 days?: No Do you have a sore throat?: No Do you have a cough?: No Do you have any weakness?: No Do you have any diarrhea?: No Are you experiencing any unusual bleeding?: No Do you have any muscle aches/pain?: No Do you have any abdominal pain?: No Are you experiencing loss of taste or smell?: No Other Medical History Have you received the Pneumonia Vaccine: Yes ROS Obtained: Yes All systems reviewed & no additional complaints except as documented Physical Exam General General appearance: alert and in no apparent distress Head Head exam: atraumatic, normocephalic and normal inspection Eye Eye exam: Present normal appearance, PERRL and EOMI ENT ENT exam: Present normal exam, normal oropharynx, mucous membranes moist, TM's normal bilaterally and normal external ear exam Neck Neck exam: Present normal inspection, full ROM and trachea midline; Absent meningismus or lymphadenopathy Chest Chest inspection: Present normal inspection and symmetric chest wall rise; Absent tenderness Respiratory Respiratory exam: Present normal lung sounds bilaterally; Absent respiratory distress Cardiovascular Cardiovascular exam: Present regular rate and normal rhythm; Absent JVD Abdominal Exam Abdominal exam: Present soft and normal bowel sounds; Absent distention, tenderness or guarding Extremities Exam Extremities exam: Present normal inspection, full ROM and normal capillary refill; Absent calf tenderness Back Exam Back exam: Present normal inspection; Absent tenderness Neurological Exam Neurological exam: Present alert and oriented X3 Psychiatric Psychiatric exam: Present normal affect and normal mood Skin Skin exam: Present warm, dry, intact and normal color Lymphatic Lymphatic Findings: no adenopathy HEART Score HEART Score HEART Score assessment performed?: Yes History (anamnesis): Slightly suspicious ECG: Non-specific disturbance Age: >65 years Risk factors: 1-2 risk factors Troponin: </= normal limit HEART Score: 4 Procedures Limited Ultrasound Indication:: Chest pain Views:: Parasternal long, parasternal short Findings:: No gross abnormalities Interpretation:: No evidence of pericardial effusion or gross wall motion abnormalities Critical Care Critical Care Time Critical Care Time: No Medical Decision Making Medical Records Medical records reviewed: Yes I reviewed the patient's medical records. Michael Inquiry Pt receiving controlled substance: No Michael was queried for this patient: No Vital Signs Vital Signs: 10/30/24 16:49 10/30/24 16:58 10/30/24 17:00 Temperature 98.4 F Temperature Source Oral Pulse Rate 94 H 90 Pulse Rate [Right] 88 Respiratory Rate 16 13 16 Blood Pressure 116/73 111/69 Blood Pressure [Right Arm] 116/73 Blood Pressure Mean [Right Arm] 87 02 Sat by Pulse Oximetry 98 96 95 Oxygen Delivery Method Room Air 10/30/24 17:30 10/30/24 18:00 10/30/24 18:30 Temperature Temperature Source Pulse Rate 83 79 78 Pulse Rate [Right] Respiratory Rate 12 12 12 Blood Pressure 104/71 L 117/72 99/71 L Blood Pressure [Right Arm] Blood Pressure Mean [Right Arm] 02 Sat by Pulse Oximetry 96 96 95 Oxygen Delivery Method Room Air Room Air Room Air 10/30/24 19:00 10/30/24 19:15 10/30/24 19:30 Temperature Temperature Source Pulse Rate 73 72 75 Pulse Rate [Right] Respiratory Rate 14 18 15 Blood Pressure 99/67 L 98/66 L Blood Pressure [Right Arm] Blood Pressure Mean [Right Arm] 02 Sat by Pulse Oximetry 96 96 96 Oxygen Delivery Method Room Air 10/30/24 19:45 10/30/24 20:00 10/30/24 20:15 Temperature Temperature Source Pulse Rate 78 67 70 Pulse Rate [Right] Respiratory Rate 14 15 14 Blood Pressure 99/65 L Blood Pressure [Right Arm] Blood Pressure Mean [Right Arm] 02 Sat by Pulse Oximetry 94 L 97 92 L Oxygen Delivery Method 10/30/24 20:59 10/30/24 20:59 Temperature 98 F Temperature Source Tympanic Pulse Rate 68 70 Pulse Rate [Right] Respiratory Rate 18 Blood Pressure 100/62 L Blood Pressure [Right Arm] Blood Pressure Mean [Right Arm] 02 Sat by Pulse Oximetry Oxygen Delivery Method Room Air Lab Data Lab results reviewed: Yes I reviewed the patient's lab results. Labs: Lab Results 10/30/24 16:58: WBC 7.1, RBC 4.86, Hgb 14.6, Hct 43.8, MCV 90.1, MCH 30.0, MCHC 33.3, RDW 12.9, Plt Count 234, MPV 9.3, Neut % (Auto) 52.3, Lymph % (Auto) 33.7, [facility] % (Auto) 10.5 H, Eos % (Auto) 2.7, Baso % (Auto) 0.4, Neut # (Auto) 3.7, Lymph # (Auto) 2.4, [facility] # (Auto) 0.7, Eos # (Auto) 0.2, Baso # (Auto) 0.0, D- Dimer 0.37, Sodium 137, Potassium 3.9, Chloride 97 L, Carbon Dioxide 28, Anion Gap 15.9 H, BUN 14, Creatinine 0.90, Estimated Creat Clear 79, Estimated GFR 84, Est GFR ( Amer) 102, Glucose 170 H, Calcium 9.1, Total Bilirubin 1.0, AST 27, ALT 32, Alkaline Phosphatase 55, Troponin I < 0.01, NT-Pro-B Natriuret Pep 262 H, Total Protein 7.5, Albumin 4.5, Globulin 3.0, Albumin/Globulin Ratio 1.5, HCV Ab MARIE w/Rflx PCR Qn Negative, HIV Ag/Ab Combo Qual Negative 10/30/24 19:34: Troponin I < 0.01 10/30/24 16:58 10/30/24 16:58 Response Orders (Tests/Meds): ED MEDICATIONS Discontinued Medications Generic Name Dose Route Start Last Admin Trade Name Freq PRN Reason Stop Dose Admin Ibuprofen 800 mg 10/30/24 17:14 10/30/24 17:42 Ibuprofen 800 Mg Tablet PO 10/30/24 17:15 800 mg ONCE ONE Administration ORDERS Category Date Time Status POCUS Point of Care (ER Only) Stat Exams 10/30/24 17:20 Taken XR chest portable Stat Exams 10/30/24 17:12 Completed Complete Blood Count Auto Diff Stat Lab 10/30/24 16:58 Completed Comprehensive Metabolic Panel Stat Lab 10/30/24 16:58 Completed D-Dimer Stat Lab 10/30/24 16:58 Completed HIV Combo Stat Lab 10/30/24 16:58 Completed Hepatitis C Ab Qual. W/ RFX Stat Lab 10/30/24 16:58 Completed NT Pro Brain Natriuretic Pep. Stat Lab 10/30/24 16:58 Completed Troponin I Q3H Lab 10/30/24 19:34 Completed Troponin I Stat Lab 10/30/24 16:58 Completed ECG Data Tracing #1: Attestation: I reviewed this ECG and interpreted as documented below: ECG Narrative: Ventricular paced rhythm with a rate of 92, no QTc prolongation, no evidence of acute ischemia or significant ST elevation/depression. MDM Narrative Medical Decision Narrative: In summary, patient is a 69-year-old male presenting with chest pain. Differential diagnosis includes but is not limited to, ACS, PE, costochondritis, pericarditis, pneumonia, among others. Patient has a past medical history significant for permanent pacemaker due to wall motion abnormalities without prior MA or stents. Patient's symptoms have been present for multiple days and presented after new physical activity. Patient hemodynamically stable and in no acute distress on evaluation. Bedside cardiac ultrasound negative for pericardial effusion or gross wall motion abnormalities. Patient to be evaluated with EKG, troponin, proBNP, D-dimer, CBC, CMP, CXR. Patient given ibuprofen. Labs demonstrated no leukocytosis, anemia, thrombocytopenia. D-dimer within normal limits. proBNP slightly elevated at 262. Initial troponin <0.01. CXR reviewed by me and negative for acute consolidation, pleural effusion, pacemaker leads appear appropriately placed. Repeat troponin unchanged. On reevaluation, patient remains hemodynamically stable and in no acute distress. Patient given the results of his evaluation and at this time it is felt patient can be safely discharged. Patient given symptomatic recommendations as well as follow-up recommendations. Patient is scheduled to have his pacemaker battery checked on Friday and will be able to be reevaluated then. Patient given strict return precautions. Patient discharged in stable condition. Chichi Galeas MD
--- NOTE | 2024-10-30 18:33 | PC.NURSE ---
rounded on pt states no needs at this time,call light in reach
[2024-10-30 18:39] LABS: HIV Combo NEGATIVE (Negative)
[2024-10-30 18:48] LABS: Hepatitis C Ab Qual. W/ RFX NEGATIVE (Negative)
[2024-10-30 20:07] LABS: Troponin I < 0.01 ng/ml (0.00-0.034)
== END 2024-10-30 21:03 | disposition home or self-care (01) ==
PROVIDERS: Emergency Provider Student in an Organized Health Care Education/Training Program; PCP Family Medicine
DX: I44.7 Left bundle-branch block, unspecified (principal); R07.1 Chest pain on breathing; R07.9 Chest pain, unspecified; R05.9 Cough, unspecified; Z95.0 Presence of cardiac pacemaker
CPT/HCPCS: 71045; 80053; 83880; 84484; 85025; 85378; 86803; 87389; 93005; 99284

== ENCOUNTER 2025-08-23 07:49 | Day surgery (SDC) | payer OTHER, SELFPAY ==
[2025-08-18 14:40] VITALS: BMI 27.3
[2025-08-23] VITALS (7 sets, daily range): BP systolic 111–147; BP diastolic 62–78; PULSE 71–85; RESP 16–18; TEMP 36.2–36.3; O2SAT 93–96
[2025-08-23] MEDS: PHENYLEPHRINE 2.5% OPHTH SOLN 2ML OP ×3 (08:35→08:47)
[2025-08-23] MEDS: CYCLOPENTOLATE 2% OPHTH SOLN 2ML BOTTLE OP ×3 (08:35→08:47)
[2025-08-23] MEDS: TETRACAINE 0.5% OPTH SOL 15ML OP ×4 (08:35→08:47)
[2025-08-23] MEDS: LACTATED RINGERS 1000ML 1,000 ML 50 ML IV (08:46)
[2025-08-23 08:55] LABS: POC Glucose,Bedside 175 gm/dL (70-110)
[2025-08-23] MEDS: MIDAZOLAM 2MG/2ML VIAL 1 MG IV (10:01)
[2025-08-23] MEDS: LIDOCAINE 1% PF 2ML VIAL 2 ML IJ (10:01)
[2025-08-23] MEDS: TOBRAMYCIN/DEX OPTH SUSP 2.5ML OP (10:02)
[2025-08-23] MEDS: TIMOLOL 0.5% OPTH SOLN 5ML OP (10:02)
--- NOTE | 2025-08-23 13:14 | P.PCN_ITS ---
[facility] Procedure Note Date: 08/23/25 Time: 13:15 Procedure Note:: Preoperative Diagnosis: Cataract combined NS Cortical Complex [Right] Eye Postop diagnosis: same Operation: Microscopic phacoemulsification with intraocular lens implant [Right] Eye Specimen: None Blood Loss: None The patient was examined in the office with a complaint of poor vision in the [right] eye. The patient reports that this interferes with ADLs such as reading, watching TV and/or driving or the vision is like looking through a foggy haze and is very troubling. The patient was examined and found to have a visually significant cataract with best corrected vision of [20/400] by refraction and/or glare testing. Treatment options, risks and benefits were explained and the patient elected to have cataract surgery in an attempt to improve their vision. The patient had the eye anesthetized with topical tetracaine, the eye ways prepped and draped in the usual fashion for cataract surgery. A paracentesis and a temporal keratotomy were made. 0.2cc of 1% lidocaine PF was placed into the anterior chamber. And aqueous/viscoelastic exchange was done and a 360 degree capsulorexis was performed. Through hydrodissection and delineation with BSS on a cannula was done. The lens nucleus was phecoemulsified with CDE of [13.05]. Residual cortical material was removed using automated I&A The capsular bag was deepened with viscoelastica and a PCIOL was placed in the capsular bag with good centration and stability. Residual viscoelastic was removed using automated I&A. The keratotomy incision was hydrated with BSS on a cannula. The wound were checked and found to be water tight. IOP was checked digitally and adjusted as needed so as not to be too high. 1 drop of timolol 0.5%, ofloxacin, prednisolone acetate and ketorolac was instilled and eye shield taped over the eye. The patient was taken to recovery in good condition and will be seen postoperatively.
== END 2025-08-23 10:30 | disposition home or self-care (01) ==
PROVIDERS: PCP Family Medicine; Visit Provider Ophthalmology
PROC: (CPT 66984; principal; 2025-08-23 10:00)
DX: H25.811 Combined forms of age-related cataract, right eye (principal); I25.10 Atherosclerotic heart disease of native coronary artery without angina pectoris; E11.9 Type 2 diabetes mellitus without complications; I11.0 Hypertensive heart disease with heart failure; Z95.0 Presence of cardiac pacemaker; I50.20 Unspecified systolic (congestive) heart failure; Z87.442 Personal history of urinary calculi; Z83.3 Family history of diabetes mellitus; Z79.899 Other long term (current) drug therapy; Z79.82 Long term (current) use of aspirin; Z79.84 Long term (current) use of oral hypoglycemic drugs; Z85.858 Personal history of malignant neoplasm of other endocrine glands
CPT/HCPCS: 66984; 82962; J2250; J7120; V2632